=== PATIENT | female | born 1985 | race Hispanic/Latino ===

== ENCOUNTER 2019-09-01 14:04 | Emergency (ER) | payer BC, SELFPAY ==
[2019-09-01] MEDS ORDERED: Ondansetron ODT 8 MG TAB ONE (15:05)
[2019-09-01] MEDS ORDERED: Acetaminophen 500 MG TAB ONE (15:05)
[2019-09-01 15:28] LABS: Bilirubin Small (Negative); Blood, Urine Large (Negative); Glucose, Urine (Dipstick) Negative (Negative); Leukocyte Trace (Negative); Nitrite Negative (Negative); Protein, Urine (Dipstick) > or equal to 300 mg/dL (Neg-Trace)
[2019-09-01 15:43] LABS: Clarity Cloudy (Clear)
[2019-09-01 15:44] LABS: Pregnancy Test - Urine (BHCG) Negative (Negative); Pregu Control Background? CLEAR/WHITE (CLR/WHITE); Pregu Control Bar Appear? YES (CONTROL BAR); Specific Gravity 1.015 (1.002-1.036)
[2019-09-01 15:53] LABS: Bacteria/HPF None Seen HPF (None Seen); RBC/HPF Greater than 50 HPF (0-3); Squamous Epithelial 0-3 HPF (0-3); WBC/HPF 0-3 HPF (0-3)
== END 2019-09-01 16:15 | disposition home or self-care (01) ==
LOC: ERS 14:04
DX: K52.9 Noninfective gastroenteritis and colitis, unspecified (principal); F41.9 Anxiety disorder, unspecified; Z87.891 Personal history of nicotine dependence
CPT/HCPCS: 81003; 81015; 81025; 99284

== ENCOUNTER 2020-04-12 14:43 | Emergency (ER) | payer OTHER, SELFPAY | END 2020-04-12 15:07 | disposition home or self-care (01) | LOC: ERS 14:43 | DX: J02.9 Acute pharyngitis, unspecified (principal); R05 Cough; R51 Headache; Z20.828 Contact with and (suspected) exposure to other viral communicable diseases; Z87.891 Personal history of nicotine dependence | CPT/HCPCS: 87635; 99284; U0003 ==

== ENCOUNTER 2022-03-11 22:30 | Emergency (ER) | payer BC | END 2022-03-11 22:41 | disposition left against medical advice (07) | LOC: ERS 22:30 | DX: Z53.21 Procedure and treatment not carried out due to patient leaving prior to being seen by health care provider (principal) ==

== ENCOUNTER 2022-04-06 21:54 | Emergency (ER) | payer BC | END 2022-04-06 22:24 | disposition home or self-care (01) | LOC: ERS 21:54 | DX: G56.01 Carpal tunnel syndrome, right upper limb (principal) | CPT/HCPCS: 99283 ==